=== PATIENT | female | born 1965 | race Caucasian/White ===

== ENCOUNTER → 2017-01-26 | Outpatient (CLI) | payer BC ==
[~2017-01-26] MED LIST: ALLEGRA ALLERG180 MG PO; ALLEGRA60 MG PO; AMLODIPINE BESY10 MG PO; CIPRO500 MG PO; DIOVAN40 MG PO; DIOVAN80 MG PO; ENDOCET 5-3251 EACH PO; FISH OIL500 MG PO; KEFLEX500 MG PO; LEVAQUIN500 MG PO; LEVOTHYROXINE88 MCG PO; LOPRESSOR25 MG PO; NEXIUM40 MG PO; PERCOCET 5/31 TABLET PO; PULMICORT FLEX90 MCG IH; TAMSULOSIN HCL0.4 MG PO; TRAMADOL HCL50 MG PO; VALSARTAN160 MG PO; VENTOLIN HFA18 GM IH; ZANTAC150 MG PO
== END | disposition home or self-care (01) ==
LOC: OPR 07:36 → EDSTATUS 08:00 → OPR 08:00
DX: I12.9 Hypertensive chronic kidney disease with stage 1 through stage 4 chronic kidney disease, or unspecified chronic kidney disease (principal); N02.8 Recurrent and persistent hematuria with other morphologic changes; N18.3 Chronic kidney disease, stage 3 (moderate); J45.909 Unspecified asthma, uncomplicated; Z80.3 Family history of malignant neoplasm of breast; Z88.0 Allergy status to penicillin
CPT/HCPCS: 77012; 85027; 85610; 85730; 88305; 88313 90; 88346 90; 88348 90; J3010

== ENCOUNTER 2017-06-05 19:18 | Emergency (ER) | payer BC ==
[~2017-06-05] VITALS: Ht 160 cm; Wt 102.7 kg
[2017-06-05 19:45] LABS: ADD MIUA? YES; BILIRUBIN NEGATIVE; BLOOD LARGE; COLOR COLORLESS ((YELLOW)); GLUCOSE (STRIP) NEGATIVE; KETONES NEGATIVE; LEUKOCYTES NEGATIVE; NITRITE NEGATIVE; PROTEIN (STRIP) NEGATIVE; SPECIFIC GRAVITY 1.004 (1.000-1.030); UROBILINOGEN 0.2 MG/DL (0.2-1.0)
[2017-06-05 19:49] LABS: BACTERIA RARE /HPF; EPITHELIAL CELLS RARE /HPF; MUCUS NONE SEEN /LPF; RED BLOOD CELLS 0-5 /HPF (0-5); UCUL ADDED? NO; WHITE BLOOD CELLS 0-5 /HPF (0-5)
[2017-06-05 20:23] LABS: HEMATOCRIT 38.1 % (36.0-46.0); MCH 27.3 PG (29.0-34.0); MCHC 32.3 G/DL (30.0-36.0); MCV 84.7 FL (83-99); PLATELET COUNT 260 K/uL (156-360); RBC DIS.WIDTH-CV 14.1 % (11.8-14.6); RBC DIS.WIDTH-SD 43.6 % (39-53); WHITE BLOOD COUNT 9.5 K/uL (4.1-10.2)
[2017-06-05 20:32] LABS: CHLORIDE 108 mEq/L (99-109); POTASSIUM 4.1 mEq/L (3.7-5.4); SODIUM 140 mEq/L (136-147)
[2017-06-05 20:34] LABS: GLUCOSE 93 mg/dL (70-99)
[2017-06-05 20:35] LABS: ANION GAP 9 MEQ/L (2-14)
[2017-06-05 20:36] LABS: TOTAL BILIRUBIN 0.4 mg/dL (0.0-1.0)
[2017-06-05 20:37] LABS: ALKALINE PHOSPHATASE 108 IU/L (3-129)
[2017-06-05 20:38] LABS: GFR ESTIMATE (CALCULATED) 39 mL/min/
[2017-06-05 20:39] LABS: UREA NITROGEN (BUN) 35 mg/dL (9-23)
[2017-06-05 20:41] LABS: LIPASE 71 U/L (1.0-51.0)
[2017-06-05 22:23] VITALS: BP 135/70
== END 2017-06-05 22:23 | disposition home or self-care (01) ==
LOC: EME 19:18
DX: R10.9 Unspecified abdominal pain (principal); N05.9 Unspecified nephritic syndrome with unspecified morphologic changes; K21.9 Gastro-esophageal reflux disease without esophagitis; Z87.442 Personal history of urinary calculi; J45.909 Unspecified asthma, uncomplicated; Z88.0 Allergy status to penicillin
CPT/HCPCS: 74176; 80053; 81003; 83690; 84702; 85027; 99281; 99283